=== PATIENT | male | born 1990 | race African-American/Black ===

== ENCOUNTER 2021-09-02 14:20 | Inpatient (IN) | payer MEDICAID, OTHER ==
[~2021-09-02] VITALS: Ht 175.3 cm; Wt 72.6 kg
[2021-09-02] MEDS ORDERED: FAMOTIDINE 20MG/2ML VIAL IV STA (14:41)
[2021-09-02] MEDS ORDERED: ONDANSETRON HCL 4MG/2ML INJ IV STA (14:41)
[2021-09-02] MEDS ORDERED: SODIUM CHLORIDE 0.9% 1,000 ML IV ONE (14:45)
[2021-09-02 15:37] LABS: HEMATOCRIT. 24.5 % (42.0-52.0); HEMOGLOBIN. 8.2 g/dL (14.0-18.0); MEAN CORPUSCULAR HEMOGLOBIN 30.9 pg (28.0-32.0); MEAN CORPUSCULAR VOLUME 92.1 fL (80.0-94.0); MEAN PLATELET VOLUME 8.3 fl (7.4-10.4); PLATELET 294 x1000/uL (130-400); RED BLOOD CELL COUNT 2.67 mill/uL (4.7-6.1); RED CELL DISTRIBUTION WIDTH 15.9 % (11.6-14.6)
[2021-09-02 15:43] LABS: CHLORIDE 96 mEq/L (98-107)
[2021-09-02 15:52] LABS: ETHANOL BLOOD < 10 mg/dL
[2021-09-02 16:59] LABS: PLATELET ESTIMATE NORMAL
[2021-09-02] MEDS ORDERED: ONDANSETRON HCL 4MG/2ML INJ IV PRN (19:30)
[2021-09-02] MEDS ORDERED: DIPHENHYDRAMINE 50MG/ML VIAL IV PRN (19:30)
[2021-09-02] MEDS ORDERED: IPRATROPIUM/ALBUTEROL 0.5-3(2.5)MG/3ML NEB HHN PRN (19:30)
[2021-09-02] MEDS ORDERED: CLONIDINE 0.1MG TABLET PO PRN (19:30)
[2021-09-02] MEDS ORDERED: ACETAMINOPHEN 325MG TABLET PO PRN (19:30)
[2021-09-02] MEDS: SODIUM CHLORIDE 0.9% 1,000 ML IV SCH (20:06)
[2021-09-02] MEDS ORDERED: IOHEXOL-300 100 ML BOTTLE ONE (23:17)
[2021-09-03 05:21] LABS: HEMATOCRIT. 24.3 % (42.0-52.0); HEMOGLOBIN. 8.2 g/dL (14.0-18.0); MEAN CORPUSCULAR HEMOGLOBIN 30.9 pg (28.0-32.0); MEAN CORPUSCULAR VOLUME 91.7 fL (80.0-94.0); MEAN PLATELET VOLUME 8.5 fl (7.4-10.4); PLATELET 261 x1000/uL (130-400); RED BLOOD CELL COUNT 2.65 mill/uL (4.7-6.1); RED CELL DISTRIBUTION WIDTH 15.7 % (11.6-14.6)
[2021-09-03 05:28] LABS: CHLORIDE 101 mEq/L (98-107)
[2021-09-03 09:21] LABS: PLATELET ESTIMATE NORMAL
[2021-09-03 10:00] VITALS: BP 114/87
[2021-09-03 11:00] VITALS: BP 114/87
[2021-09-03] MEDS: SODIUM CHLORIDE 0.9% 1,000 ML IV SCH ×2 (11:00→21:37)
[2021-09-03] MEDS ORDERED: SULF-13 MT (11:02)
[2021-09-03] MEDS ORDERED: *PATIENT'S OWN MEDICATION STORAGE XX SCH (11:30)
[2021-09-03 12:00] VITALS: BP 112/67
[2021-09-03 16:00] VITALS: BP 103/69
[2021-09-03 20:38] VITALS: BP 113/79
[2021-09-03] MEDS ORDERED: CIPR250S4 PO (21:56)
[2021-09-03] MEDS ORDERED: BICT1TAB PO (21:56)
[2021-09-04 01:20] VITALS: BP 111/64
[2021-09-04 05:42] VITALS: BP 106/70
[2021-09-04] MEDS ORDERED: BIKTARVY PO SCH (09:00)
== END 2021-09-04 05:25 | disposition left against medical advice (07) | DRG 469 ==
LOC: ER 14:31 → MICUSO 18:34 → 6EST 09-03 09:47
PROVIDERS: ADMIT Internal Medicine; ATTEND Internal Medicine
DX: N17.9 Acute kidney failure, unspecified (principal); R64 Cachexia; E87.1 Hypo-osmolality and hyponatremia; E86.0 Dehydration; Z20.822 Contact with and (suspected) exposure to COVID-19; R62.7 Adult failure to thrive; Z21 Asymptomatic human immunodeficiency virus [HIV] infection status; F12.90 Cannabis use, unspecified, uncomplicated; F17.200 Nicotine dependence, unspecified, uncomplicated; Z53.29 Procedure and treatment not carried out because of patient's decision for other reasons; Z68.23 Body mass index [BMI] 23.0-23.9, adult; Z28.310 Unvaccinated for COVID-19
CPT/HCPCS: 36415; 71045; 74176; 74177; 80053; 80320; 83605; 84145; 84484; 85025; 87426; 93005; 93970; 99285; J1200; J2405; J3490; J7030; Q9967; G0480

== ENCOUNTER 2024-04-26 15:15 | Emergency (ER) | payer MEDICAID ==
[~2024-04-26] VITALS: Ht 180.3 cm; Wt 70.0 kg
[~2024-04-26 15:15] MED LIST: BICT1TAB PO; CIPR250S5 PO; SULF-13 MT
[2024-04-26 15:16] VITALS: BP 124/78; TEMP 36.7
[2024-04-26] MEDS: PREDNISONE 20MG TABLET PO ONE (16:35)
[2024-04-26 16:40] VITALS: PULSE 74; RESP 20; O2SAT 97
[2024-04-26] MEDS: IPRATROPIUM/ALBUTEROL 0.5-3(2.5)MG/3ML NEB HHN ONE (16:40)
[2024-04-26] MEDS ORDERED: P20 PO (16:56)
[2024-04-26] MEDS ORDERED: ALBU18HF2 IH (16:56)
== END 2024-04-26 17:03 | disposition home or self-care (01) ==
LOC: ER 15:15
DX: J45.901 Unspecified asthma with (acute) exacerbation (principal); Z79.52 Long term (current) use of systemic steroids; Z87.440 Personal history of urinary (tract) infections; Z79.899 Other long term (current) drug therapy; Z20.822 Contact with and (suspected) exposure to COVID-19
CPT/HCPCS: 71045; 94640; 98960; 99284; 87426; J7512; Z7610 ×3; 94070; 94664

== ENCOUNTER 2024-06-11 08:54 | Emergency (ER) | payer MEDICAID, OTHER ==
[~2024-06-11] VITALS: Ht 177.8 cm; Wt 73.0 kg
[~2024-06-11 08:54] MED LIST changes: +ALBU18HF2 IH; +P20 PO
[2024-06-11 09:07] VITALS: O2SAT 98
[2024-06-11] MEDS: MORPHINE SULFATE 4 MG/ML INJ (FOR IV/IM USE) IV STA (09:43)
[2024-06-11] MEDS: SODIUM CHLORIDE 0.9% 1,000 ML IV ONE (09:43)
[2024-06-11] MEDS: ONDANSETRON HCL 4MG/2ML INJ IV STA (09:43)
[2024-06-11 09:48] LABS: BASOPHILS % 0.3 % (0.0-2.0); EOSINOPHILS % 0.3 % (0.0-5.0); HEMATOCRIT. 40.5 % (42.0-52.0); HEMOGLOBIN. 13.6 g/dL (14.0-18.0); LYMPHOCYTES % 15.1 % (20.0-50.0); MEAN CORPUSCULAR HEMOGLOBIN 32.4 pg (28.0-32.0); MEAN CORPUSCULAR HGB CONC 33.5 g/dL (31.0-37.0); MEAN CORPUSCULAR VOLUME 96.7 fL (80.0-94.0); MEAN PLATELET VOLUME 7.7 fl (7.4-10.4); MONOCYTES % 5.4 % (2.0-8.0); NEUTROPHILS % 78.9 % (40.0-76.0); PLATELET 223 x1000/uL (130-400); RED BLOOD CELL COUNT 4.19 mill/uL (4.7-6.1); RED CELL DISTRIBUTION WIDTH 14.3 % (11.6-14.6); WHITE BLOOD COUNT 11.2 x1000/uL (4.5-11.0)
[2024-06-11 09:56] LABS: CHLORIDE 104 mEq/L (98-107); POTASSIUM 4.3 mEq/L (3.5-5.1); SODIUM 134 mEq/L (136-145)
[2024-06-11 09:57] LABS: CALCIUM 9.2 mg/dL (8.7-10.4); CARBON DIOXIDE 24 mEq/L (21-32)
[2024-06-11 09:59] LABS: PROTHROMBIN TIME 10.6 sec (9.6-11.0)
[2024-06-11 10:02] LABS: GLUCOSE 110 mg/dL (70-105)
[2024-06-11 10:03] LABS: UREA NITROGEN BLOOD 12 mg/dL (9-23)
[2024-06-11 10:04] LABS: ALANINE AMINOTRANSFERASE 7 IU/L (10-49); ALBUMIN 4.4 g/dL (3.2-4.8); ASPARTATE AMINOTRANSFERASE 18 IU/L (<34); BILIRUBIN DIRECT 0.1 mg/dL (<=3.0)
[2024-06-11 10:05] LABS: BILIRUBIN TOTAL 0.5 mg/dL (0.1-1.0); PROTEIN TOTAL 8.8 g/dL (6.0-8.3)
[2024-06-11 10:05] LABS: CLARITY URINE CLEAR (CLEAR); COLOR URINE YELLOW (YELLOW); GLUCOSE URINE NEGATIVE (NEGATIVE); KETONES URINE TRACE (NEGATIVE); LEUKOCYTE ESTERASE URINE TRACE (NEGATIVE); NITRITE URINE NEGATIVE (NEGATIVE); OCCULT BLOOD URINE NEGATIVE (NEGATIVE); PH URINE 7.5 (4.5-8.0); PROTEIN URINE TRACE (NEGATIVE); SPECIFIC GRAVITY URINE 1.026 (1.005-1.030)
[2024-06-11 10:14] LABS: BACTERIA URINE TRACE; RBC URINE 0-2 /hpf (0-2); SQUAMOUS EPITHELIAL CELL URINE 1+ /lpf (RARE/1+); YEAST URINE NONE SEEN
[2024-06-11] MEDS: ONDANSETRON HCL 4MG/2ML INJ IV ONE (11:30)
[2024-06-11] MEDS ORDERED: KETOROLAC 30MG/ML VIAL IV NR (15:30)
[2024-06-11] MEDS ORDERED: SODIUM CHLORIDE 0.9% 1,000 ML IV SCH (15:45)
[2024-06-11] MEDS ORDERED: ACETAMINOPHEN 325MG TABLET PO PRN (16:00)
[2024-06-11] MEDS ORDERED: PIPERACILLIN/TAZO 3.375G/50ML 50 ML IV NR (16:00)
[2024-06-11] MEDS ORDERED: ONDANSETRON HCL 4MG/2ML INJ IV PRN (16:00)
[2024-06-11] MEDS ORDERED: BUPR8TAB3 SL (16:01)
[2024-06-11] MEDS ORDERED: GABA-1180 PO (16:01)
[2024-06-11] MEDS ORDERED: DOLU50TA PO (16:01)
[2024-06-11] MEDS ORDERED: EMTR1TAB12 PO (16:01)
[2024-06-11 16:08] VITALS: BP 117/70; PULSE 67; RESP 20; TEMP 36.8; O2SAT 97
[2024-06-11] MEDS ORDERED: PIPERACILLIN/TAZO 3.375G/50ML 50 ML IV SCH (23:00)
[2024-06-12] MEDS ORDERED: [UNRECOGNIZED DRUG - OTHER] PO SCH (09:00)
[2024-06-12] MEDS ORDERED: DOLUTEGRAVIR SODIUM PO SCH (09:00)
[2024-06-12] MEDS ORDERED: BUPRENORPHINE 8MG SL TABLET SL SCH (09:00)
[2024-06-12] MEDS ORDERED: PANTOPRAZOLE SODIUM 40 MG/VIAL IV SCH (09:00)
[2024-06-12] MEDS ORDERED: GABAPENTIN 300MG CAPSULE PO SCH (09:00)
== END 2024-06-11 16:47 | disposition short-term general hospital (02) ==
LOC: ER 08:54 → 5WST 13:00 → UNDOADMIN 13:00 → ER 16:47
DX: R10.84 Generalized abdominal pain (principal); F17.210 Nicotine dependence, cigarettes, uncomplicated; J45.909 Unspecified asthma, uncomplicated; Z79.52 Long term (current) use of systemic steroids; Z87.440 Personal history of urinary (tract) infections
CPT/HCPCS: 99285; 74176; 96374; 96361; 96375; 80076; 80048; 81003; 82962; 83690; 85025; 85610; 36415; 96376; J2405; J2270; J7030